=== PATIENT | female | born 1965 | race Caucasian/White ===

== ENCOUNTER 2016-08-21 12:45 | Observation (INO) | payer MEDICAID ==
[2016-08-21] VITALS (10 sets, daily range): BP systolic 112–154; BP diastolic 60–83; PULSE 66–93; RESP 15–18; TEMP 98.1–99.1; O2SAT 95–100
[~2016-08-21] VITALS: Ht 160 cm; Wt 103.0 kg
[~2016-08-21 12:45] MED LIST: AMLO5TAB2 PO; ASPI325T PO; AUGM875T PO; BUTA1CAP PO; DICY10CA12 PO; ESTR0.5T PO; EXCETAB PO; FLUC150T PO; HYDR1OIN25 TOP; KETO2CRE TOPICAL; LACT4500 CHEW; LEVO25TA4 PO; LORA-373 PO; PANT40TA3 PO; SUCR1TAB PO
--- NOTE | 2016-08-21 13:11 | PD ---
HPI Chief Complaint: Chest Pain Time Seen by Provider: 13:10 Travel History International Travel<30 days: No Contact w/Intl Traveler<30days: No Traveled to known affect area: No History of Present Illness HPI 51-year-old female with PMH of HTN, IBS, GERD, anxiety, depression presents to the ED for evaluation of 2 week history of pinching left-sided chest pain, onset at rest. Rated 7/10, radiating down the left arm. Accompanied by palpitations, nausea, shortness of breath. Patient denies diaphoresis. No alleviating or exacerbating factors reported. Episodes last a few minutes and resolve on their own. She is unable to associate these episodes with any particular events. Patient endorses stress test approximately 7 years ago. States she was unable to complete the study. She does not currently have a urgent care physician assistant. Followed by PCP Dr. Naz Holt [facility] Past Medical History Blood Disorders: No Anxiety: Yes Depression: Yes Heart Rhythm Problems: Yes Cancer: No Cardiac Catheterization: No Cardiovascular Problems: Yes (HX SKIPPED BEATS; EVAL WITH NEGATIVE RESULTS) High Cholesterol: Yes Congestive Heart Failure: No Diabetes: No ( HX GESTATIONAL DIABETES; HYPOGLYCEMIA) Diminished Hearing: Yes ([place] (L) ear) Endocrine: No Gastrointestinal Disorders: Yes (LACTOSE INTOLERANCE; COLON POLYPS, COLITIS; IBS; IRREGULARITY, ULCER ) Genitourinary: Yes Hepatitis: No Hiatal Hernia: No Herniated Disk: Yes (CERVICAL SPINE) Immune Disorder: Yes ([place] ) Kidney Stones: Yes Musculoskeletal: Yes (LEFT LEG & KNEE PAIN RADIATING INTO 2 LARGE TOES, LOW BACK PAIN) Neurologic: Yes (MIGRAINE HEADACHES; SEIZURES ) Psychiatric: Yes (ANXIETY & DEPRESSION ) Reproductive: Yes (OVARIAN CYST; UTERINE FIBROIDS; ENDOMETRIOSIS ) Respiratory: No Immunizations Current: No Migraines: Yes (DAILY HEADACHES.) Pneumonia: Yes Thyroid Disease: Yes (HYPOTHRYROID) Ulcer: Yes ?: Not Menopausal: Yes : 4 Para: 2 : 2 Ovarian Cysts: Yes (Fibroid tumor ) Past Surgical History Abdominal Surgery: Yes (LAPPY FOR CYST REMOVAL, COLONOSCOPY W/POLYP REMOVAL) AICD: No Cardiac Surgery: No Coronary Artery Bypass Graft: No Ear Surgery: No Endocrine Surgery: No Eye Surgery: Yes (BILATERAL LASIK) Genitourinary Surgery: No Gynecologic Surgery: Yes (TOTAL HYSTERECTOMY) Hysterectomy: Yes Joint Replacement: No Oral Surgery: Yes Pacemaker: No Thoracic Surgery: No Tonsillectomy: Yes Other Surgery: Yes (SINUS SURGERY) Family History Family Myocardial Infarction: Yes Social History Alcohol Use: No Tobacco Use: No (quit) Substance Use: No Allergies-Medications (Allergen,Severity, Reaction): Coded Allergies: Erythromycin (Verified Allergy, Severe, Rash, 08/21/16) Latex (Verified Allergy, Severe, Itching, 08/21/16) SSRI-Serotonin Reuptake Inhib (Verified Allergy, Severe, Nausea, rash, ) Codeine (Verified Adverse Reaction, Severe, Migraine, 08/21/16) Zofran (Verified Adverse Reaction, Severe, Migraine, 08/21/16) Reported Meds & Prescriptions Reported Meds & Active Scripts Active Fluconazole 150 Mg Tab 150 Mg PO ONCE Augmentin (Amoxicillin-Clavulanate) 875-125 mg Tab 875 Mg PO BID not for use in CrCl <30 ml/min. Estradiol 0.5 Mg Tab 0.5 Mg PO DAILY Fioricet (Djzqemooux-Cqxyhbgrpcfrf-Nvipytqu) 50-300-40 Mg Cap 1-2 Cap PO Q6H PRN Levothyroxine (Levothyroxine Sodium) 25 Mcg Tab 25 Mcg PO DAILY Fioricet (Bkhztapzdq-Eylfruruqgpaq-Prmwefjn) 50-300-40 Mg Cap 1-2 Cap PO Q6H PRN Reported Ketoconazole Topical 2% Cream 1 Applic TOPICAL DIRECTED Hydrocortisone 1% in Abso (Hydrocortisone (Topical)) 1 % Oin 1 Applic TOP Q2HR Excedrin Migraine (Ztoehnq-Hwtqdzhiwweqd-Puxhdxlf) 250-250-65 Mg Tab 2 Tab PO DIRECTED PRN Dicyclomine (Dicyclomine HCl) 10 Mg Cap 10 Mg PO TID PRN Amlodipine (Amlodipine Besylate) 5 Mg Tab 5 Mg PO BID Aspirin 325 Mg Tab 325 Mg PO DAILY Sucralfate 1 Gm Tab 1 Gm PO BID on empty stomach Pantoprazole (Pantoprazole Sodium) 40 Mg Tab 40 Mg PO DAILY Lorazepam 0.5 Mg Tab 0.5 Mg PO HS PRN Review of Systems Except as stated in HPI: all other systems reviewed are Neg Physical Exam Narrative GENERAL: Well-nourished, well-developed obese, anxious white female in no acute distress. SKIN: Warm and dry. HEAD: Normocephalic. EYES: No scleral icterus. No injection or drainage. PERRLA. NECK: Supple, trachea midline. No JVD or lymphadenopathy. No midline tenderness to palpation. CARDIOVASCULAR: Regular rate and rhythm without murmurs, gallops, or rubs. 2+ DP and radial pulses bilaterally. No tenderness to palpation of the precordium. RESPIRATORY: Breath sounds clear and equal bilaterally. No accessory muscle use. GASTROINTESTINAL: Abdomen soft, non-tender, nondistended. Active bowel sounds. MUSCULOSKELETAL: No cyanosis, or edema. NEUROLOGICAL: Awake and alert. Cranial nerves II through XII intact. No pronator drift. Motor and sensory grossly within normal limits. 5/5 muscle strength in all muscle groups. Normal speech. BACK: Nontender without obvious deformity. No CVA tenderness. No midline tenderness to palpation. Data Data Last Documented VS Vital Signs Date Time Temp Pulse Resp B/P Pulse Ox O2 Delivery O2 Flow Rate FiO2 08/21/16 14:39 69 17 139/77 96 Room Air 08/21/16 12:47 99.1 Orders Electrocardiogram (08/21/16:) Basic Metabolic Panel (Bmp) (08/21/16:) Ckmb (Isoenzyme) Profile (08/21/16:23) Complete Blood Count With Diff (08/21/16:) Magnesium (Mg) (08/21/16:) Prothrombin Time / Inr (Pt) (08/21/16:) Act Partial Throm Time (Ptt) (08/21/16:) Troponin I (08/21/16:) Chest, Single Ap (08/21/16:) Ecg Monitoring (08/21/16:) Bilateral Bp Monitoring (08/21/16:23) Iv Access Insert/Monitor (08/21/16:) Oximetry (08/21/16:) Sodium Chloride 0.9% Flush (Ns Flush) (08/21/16 13:30) CKMB (08/21/16:) CKMB% (08/21/16:) Admit Order (Ed Use Only) (08/21/16 15:00) Labs Laboratory Tests Test 08/21/16: White Blood Count 6.0 TH/MM3 Red Blood Count 4.64 MIL/MM3 Hemoglobin 12.2 GM/DL Hematocrit 36.5 % Mean Corpuscular Volume 78.6 FL Mean Corpuscular Hemoglobin 26.2 PG Mean Corpuscular Hemoglobin 33.4 % Concent Red Cell Distribution Width 16.5 % Platelet Count 284 TH/MM3 Mean Platelet Volume 9.7 FL Neutrophils (%) (Auto) 52.4 % Lymphocytes (%) (Auto) 36.7 % Monocytes (%) (Auto) 7.0 % Eosinophils (%) (Auto) 3.2 % Basophils (%) (Auto) 0.7 % Neutrophils # (Auto) 3.1 TH/MM3 Lymphocytes # (Auto) 2.2 TH/MM3 Monocytes # (Auto) 0.4 TH/MM3 Eosinophils # (Auto) 0.2 TH/MM3 Basophils # (Auto) 0.0 TH/MM3 CBC Comment DIFF FINAL Differential Comment Prothrombin Time 10.6 SEC Prothromb Time International 1.0 RATIO Ratio Activated Partial 24.5 SEC Thromboplast Time Sodium Level 139 MEQ/L Potassium Level 3.6 MEQ/L Chloride Level 106 MEQ/L Carbon Dioxide Level 27.4 MEQ/L Anion Gap 6 MEQ/L Blood Urea Nitrogen 17 MG/DL Creatinine 1.04 MG/DL Estimat Glomerular Filtration 56 ML/MIN Rate Random Glucose 89 MG/DL Calcium Level 9.5 MG/DL Magnesium Level 2.4 MG/DL Total Creatine Kinase 120 U/L Creatine Kinase MB LESS THAN 0.5 NG/ML Troponin I LESS THAN 0.02 NG/ML MDM Medical Decision Making Medical Screen Exam Complete: Yes Emergency Medical Condition: Yes Interpretation(s) EKG rate 81, sinus rhythm. [place] interval 145, QRS 114, QTc 426. No ischemic changes. Similar to previous EKG of 06/05/16. Reviewed by Dr. Cervantes. Differential Diagnosis Anxiety versus musculoskeletal pain versus angina versus atypical chest pain versus neuralgia versus less likely ACS versus other Narrative Course 51-year-old female with PMH of HTN, IBS, GERD, anxiety, depression presents to the ED for evaluation of 2 week history of episodic, pinching left-sided chest pain, onset at rest. Rated 7/10, radiating down the left arm. Accompanied by palpitations, nausea, shortness of breath, resolving spontaneously. Patient denies diaphoresis. No alleviating or exacerbating factors reported. She is unable to associate these episodes with any particular events. Patient endorses stress test approximately 7 years ago. States she was unable to complete the study. She does not currently have a urgent care physician assistant. Followed by PCP Dr. Naz Holt. She endorses history of cigarette smoking, family history of SD. Vitals reviewed. Patient is hypertensive in triage but this resolved during the course of her evaluation. Physical exam reveals an anxious, obese white female in no acute distress. Chest CTAB, no N/R/G. No tenderness to palpation of the precordium. Abdomen soft, nontender. No CVA tenderness. No focal neuro deficits. No edema in the lower extremities. Equal pulses in the distal extremities bilaterally. Patient was placed on continuous monitoring. IV was established. CBC: WBC 6.0. Hemoglobin 12.2. INR 1.0. Chemistry: BUN 17, creatinine 1.04. Cardiac enzymes negative CXR: No acute cardiopulmonary process per radiology read. EKG as above. Review of the patient's record reveals stress test 10/15/10. Resulted as nonischemic treadmill study per Dr. Terrazas. Discussed the patient, workup and plan of care with Dr. Cervantes. I discussed the results of the workup and plan of care with the patient, she is agreeable to admission to the chest pain center. This is atypical chest pain in a 51-year-old hypertensive, obese female with history of cigarette smoking and familial SD. Please chest pain center notes for disposition. Diagnosis Primary Impression: Atypical chest pain Peyton Reveles Aug 21, 2016 13:11
[2016-08-21] MEDS ORDERED: SODIUM CHLORIDE 0.9% FLUSH 5 ML FLUSH IVF PRN ×2 (13:30→17:15)
[2016-08-21 13:54] LABS: AUTOMATED NEUTROPHIL # 3.1 TH/MM3 (1.8-7.7); BASOPHIL % 0.7 % (0.0-2.0); EOSINOPHIL # 0.2 TH/MM3 (0-0.4); EOSINOPHIL % 3.2 % (0.0-4.0); HEMATOCRIT 36.5 % (35.0-46.0); HEMO FLAGS DIFF FINAL; LYMPH % 36.7 % (9.0-44.0); LYMPHOCYTE # 2.2 TH/MM3 (1.0-4.8); MEAN CELL VOLUME 78.6 FL (80.0-100.0); MEAN CORPUSCULAR HEMOGLOBIN 26.2 PG (27.0-34.0); MEAN CORPUSCULAR HGB CONC 33.4 % (32.0-36.0); NEUT % 52.4 % (16.0-70.0); PLATELET COUNT 284 TH/MM3 (150-450); RED BLOOD COUNT 4.64 MIL/MM3 (4.00-5.30); RED CELL DISTRIBUTION WIDTH 16.5 % (11.6-17.2)
[2016-08-21 14:01] LABS: APTT (PATIENT) 24.5 SEC (24.3-30.1); PROTHROMBIN TIME - PATIENT 10.6 SEC (9.8-11.6)
[2016-08-21 14:09] LABS: ANION GAP 6 MEQ/L (5-15); BICARBONATE 27.4 MEQ/L (21.0-32.0); BLOOD UREA NITROGEN 17 MG/DL (7-18); CHLORIDE 106 MEQ/L (98-107); GLOMERULAR FILTRATION RATE 56 ML/MIN (>89); MAGNESIUM 2.4 MG/DL (1.5-2.5); POTASSIUM 3.6 MEQ/L (3.5-5.1); SODIUM (NA) 139 MEQ/L (136-145)
[2016-08-21 14:12] LABS: CREATINE KINASE 120 U/L (26-192)
[2016-08-21 14:24] LABS: CKMB LESS THAN 0.5 NG/ML (0.5-3.6)
--- NOTE | 2016-08-21 14:26 | RADRPT ---
EXAM DATE/TIME: 08/21/2016 13:29 [facility] COMPARISON: CHEST SINGLE AP, May 24, 2016, 13:16. INDICATIONS : Pain in left chest and left arm for 5 days, pain has become more severe today, former smoker, no ches t surgery MEDICAL HISTORY : Hypertension. SURGICAL HISTORY : None. ENCOUNTER: Initial ACUITY: 4 - 6 days PAIN SCORE: 9/10 LOCATION: Left chest FINDINGS: A single view of the chest demonstrates the lungs to be symmetrically aerated without evidence of mas s, infiltrate or effusion. The cardiomediastinal contours are unremarkable. Osseous structures are intact. CONCLUSION: No acute cardiopulmonary process. Jorge Gómez MD on August 21, 2016 at 14:22 Board Certified Radiologist. This report was verified electronically.
--- NOTE | 2016-08-21 17:08 | HHI.HP ---
[facility] Primary Care Physician Naz Holt MD Chief Complaint Chest and arm pain History of Present Illness This is a 51-year-old female that presents to the ED via the [facility] with a complaint of arm and chest pain. She has had a constant left arm discomfort for 4 days. The intensity waxes and wanes. She saw nothing to worsen or improve the symptoms. She also has had a pinching sensation to the center of her chest and minimally filled last 4 days. We'll last about a minute at a time. She believes her blood pressure is high. She states her blood pressure should be about 109 and a bit tired that she feels sick. She states she has been dizzy the last 3 or 4 days. She denies heart disease. She had a stress test at this facility in 2010 is nonischemic. Denies recent illness. Of note the patient had been doing some weed whacking a couple days prior to having the left arm discomfort. Review of Systems General: Patient denies fevers, chills recent, and recent travel HEENT: Patient denies headache, sore throat, difficulty swallowing. Cardiovascular: Has the chest discomfort as mentioned above. Denies sensation of heart beating rapidly or irregularly. No syncope. Respiratory: Denies shortness of breath or inspirational chest discomfort. Denies coughing wheezing or hemoptysis. GI: Patient denies nausea, vomiting, diarrhea, abdominal pain, bloody stools. Musculoskeletal: Patient complains of left arm pain. Denies calf pain or edema. Neurovascular: Patient denies numbness, tingling, weakness in extremities. Denies headache. Endocrine: Denies polyuria and polydipsia. Hematologic: Denies easy bruising. Skin: Denies rash or itching. Past Family Social History Allergies: Coded Allergies: Erythromycin (Verified Allergy, Severe, Rash, 08/21/16) Latex (Verified Allergy, Severe, Itching, 08/21/16) SSRI-Serotonin Reuptake Inhib (Verified Allergy, Severe, Nausea, rash, ) Codeine (Verified Adverse Reaction, Severe, Migraine, 08/21/16) Zofran (Verified Adverse Reaction, Severe, Migraine, 08/21/16) Past Medical History Hypertension, hypothyroidism, migraines, depression. Denies diabetes and hyperlipidemia as well as denying coronary disease. Past Surgical History Noncontributory. Reported Medications Reported Meds & Active Scripts Active Fluconazole 150 Mg Tab 150 Mg PO ONCE Augmentin (Amoxicillin-Clavulanate) 875-125 mg Tab 875 Mg PO BID not for use in CrCl <30 ml/min. Estradiol 0.5 Mg Tab 0.5 Mg PO DAILY Fioricet (Jvpifucxpe-Gekdrvupynggq-Jltvxozk) 50-300-40 Mg Cap 1-2 Cap PO Q6H PRN Levothyroxine (Levothyroxine Sodium) 25 Mcg Tab 25 Mcg PO DAILY Fioricet (Ncikwtzoqc-Siihowefssbqw-Dvotiujh) 50-300-40 Mg Cap 1-2 Cap PO Q6H PRN Reported Ketoconazole Topical 2% Cream 1 Applic TOPICAL DIRECTED Hydrocortisone 1% in Abso (Hydrocortisone (Topical)) 1 % Oin 1 Applic TOP Q2HR Excedrin Migraine (Scgdmaq-Rwclhouraktuv-Mhmmdeag) 250-250-65 Mg Tab 2 Tab PO DIRECTED PRN Dicyclomine (Dicyclomine HCl) 10 Mg Cap 10 Mg PO TID PRN Amlodipine (Amlodipine Besylate) 5 Mg Tab 5 Mg PO BID Aspirin 325 Mg Tab 325 Mg PO DAILY Sucralfate 1 Gm Tab 1 Gm PO BID on empty stomach Pantoprazole (Pantoprazole Sodium) 40 Mg Tab 40 Mg PO DAILY Lorazepam 0.5 Mg Tab 0.5 Mg PO HS PRN Active Ordered Medications Current Medications Medications (Trade) Dose Ordered Sig/Ari Route Start Time Stop Time Status Last Admin (NS Flush) 2 ml UNSCH PRN IVF 08/21/16 13:30 Family History Family history is unknown. Social History Patient quit smoking 5 years ago. Prior to that she smoked on average less than a pack a day for about 10 years. She denies illicit drugs. Denies alcohol use. Physical Exam Vital Signs Vital Signs Date Time Temp Pulse Resp B/P Pulse Ox O2 Delivery O2 Flow Rate FiO2 08/21/16 14:39 69 17 139/77 96 Room Air 08/21/16 13:25 100 Room Air 08/21/16 12:59 93 15 154/83 100 Room Air 08/21/16 12:56 17 08/21/16 12:47 99.1 92 16 152/78 98 Room Air Physical Exam GENERAL: This is a well-nourished, well-developed patient, in no apparent distress. Patient speaks in clear complete sentences. Patient is pleasant. Patient's daughter is also at the bedside. HEENT: Head is atraumatic and normocephalic. Neck is supple without lymphadenopathy and trachea is midline. No JVD or carotid bruits. CARDIOVASCULAR: Regular rate and rhythm without murmurs, gallops, or rubs. RESPIRATORY: Clear to auscultation. Breath sounds equal bilaterally. No wheezes , rales, or rhonchi. Chest wall is nontender. No use of accessory muscles. GASTROINTESTINAL: Abdomen is nontender, nondistended. Abdomen soft. No obvious pulsatile mass or bruit. No CVA tenderness. Strong femoral pulses bilaterally. Normal bowel sounds in all quadrants. MUSCULOSKELETAL: Patient is moving upper and lower extremities freely. There is tenderness on palpating left arm. Right arm is nontender. No calf tenderness or edema, no Homans sign. Strong pulses in upper and lower extremities. NEUROLOGICAL: Patient is alert and oriented. Cranial nerves 2-12 are grossly intact. No focal deficits and speech is clear. SKIN: No rash and turgor is normal. Laboratory Laboratory Tests Test 08/21/16 13:25 White Blood Count 6.0 Red Blood Count 4.64 Hemoglobin 12.2 Hematocrit 36.5 Mean Corpuscular Volume 78.6 Mean Corpuscular Hemoglobin 26.2 Mean Corpuscular Hemoglobin 33.4 Concent Red Cell Distribution Width 16.5 Platelet Count 284 Mean Platelet Volume 9.7 Neutrophils (%) (Auto) 52.4 Lymphocytes (%) (Auto) 36.7 Monocytes (%) (Auto) 7.0 Eosinophils (%) (Auto) 3.2 Basophils (%) (Auto) 0.7 Neutrophils # (Auto) 3.1 Lymphocytes # (Auto) 2.2 Monocytes # (Auto) 0.4 Eosinophils # (Auto) 0.2 Basophils # (Auto) 0.0 CBC Comment DIFF FINAL Differential Comment Prothrombin Time 10.6 Prothromb Time International 1.0 Ratio Activated Partial 24.5 Thromboplast Time Sodium Level 139 Potassium Level 3.6 Chloride Level 106 Carbon Dioxide Level 27.4 Anion Gap 6 Blood Urea Nitrogen 17 Creatinine 1.04 Estimat Glomerular Filtration 56 Rate Random Glucose 89 Calcium Level 9.5 Magnesium Level 2.4 Total Creatine Kinase 120 Creatine Kinase MB LESS THAN 0.5 Troponin I LESS THAN 0.02 Result Diagram: 08/21/16 1325 2/13/17 1325 Imaging Last Impressions Chest X-Ray 08/21/16 1323 Signed Impressions: Service Date/Time: Sunday, August 21, 2016 13:29 - CONCLUSION: No acute cardiopulmonary process. Jorge Gómez MD Course Initial EKG has sinus rhythm with nonspecific inferior ST changes. Assessment and Plan Assessment and Plan * Chest pain: Patient will continue to have serial cardiac enzymes and EKGs for ruling out purposes. She will be seen by Dr. Terrazas and the chest pain center in the morning. She will have a stress test if she does rule out. She' ll be discharged home with instructions to follow-up with her primary care physician if her stress test were to be nonischemic. * Hypertension: Continue her medications. * Hypothyroidism: Continue current medications. Will get a TSH level. Patient is stable at this time. She is agreeable to this plan. Matias Luz Aug 21, 2016 17:08
[2016-08-21] MEDS ORDERED: ACETAMINOPHEN 500 MG CPLT PO PRN (17:15)
[2016-08-21] MEDS ORDERED: TEMAZEPAM 15 MG CAP PO PRN (17:15)
[2016-08-21] MEDS ORDERED: ALPRAZolam 0.25 MG TAB PO PRN (17:15)
[2016-08-21 18:44] LABS: CREATINE KINASE 113 U/L (26-192)
[2016-08-21 18:56] LABS: CKMB LESS THAN 0.5 NG/ML (0.5-3.6)
[2016-08-21] MEDS: amLODIPine BESYLATE 5 MG TAB PO SCH (21:00)
[2016-08-21] MEDS ORDERED: IBUPROFEN 800 MG TAB PO PRN (22:30)
[2016-08-21 23:26] LABS: CREATINE KINASE 95 U/L (26-192)
[2016-08-21] MEDS: SODIUM CHLORIDE 0.9% FLUSH 5 ML FLUSH IVF SCH (23:56)
[2016-08-22] MEDS ORDERED: LEVOTHYROXINE SODIUM 25 MCG TAB PO SCH (06:00)
[2016-08-22 06:05] VITALS: BP 99/58; PULSE 61; RESP 18; TEMP 98.2; O2SAT 95
[2016-08-22] MEDS ORDERED: SODIUM CHLORID 0.9% 500 ML INJ 500 ML IV ONE (07:45)
[2016-08-22 08:01] VITALS: BP 117/69; PULSE 75; RESP 20; TEMP 97.9; O2SAT 94
[2016-08-22] MEDS: amLODIPine BESYLATE 5 MG TAB PO SCH (08:30)
[2016-08-22] MEDS: SODIUM CHLORIDE 0.9% FLUSH 5 ML FLUSH IVF SCH (08:30)
[2016-08-22] MEDS ORDERED: IBUPROFEN 800 MG TAB PO ONE (08:30)
[2016-08-22] MEDS ORDERED: HYDROCORTISONE 1% CREAM 30 GM TOPICAL SCH (09:00)
[2016-08-22] MEDS ORDERED: ASPIRIN 325 MG TAB PO SCH (09:00)
[2016-08-22] MEDS ORDERED: PANTOPRAZOLE SOD 40 MG DELAYED RELEASE TAB PO SCH (09:00)
--- NOTE | 2016-08-22 10:11 | EKG ---
Date Performed: 08/21/2016 Time Performed: 20:46:41 PTAGE: 51 years EKG: Sinus rhythm MODERATE INTRAVENTRICULAR CONDUCTION DELAY NONSPECIFIC ST & T-WAVE ABNORMALITY BORDERLINE ECG Since PREVIOUS TRACING , no significant change noted PREVIOUS TRACIN08/21/2016 17.35 DOCTOR: Stacy Terrazas Interpretating Date/Time 08/22/2016 10:10:49
--- NOTE | 2016-08-22 10:12 | EKG ---
Date Performed: 08/21/2016 Time Performed: 17:35:52 PTAGE: 51 years EKG: Sinus rhythm MODERATE INTRAVENTRICULAR CONDUCTION DELAY MINIMAL ST DEPRESSION BORDERLINE ECG Since PREVIOUS TRACING , no significant change noted PREVIOUS TRACIN08/21/2016 13.02 DOCTOR: Stacy Terrazas Interpretating Date/Time 08/22/2016 10:11:58
[2016-08-22] MEDS ORDERED: AMINOPHYLLINE INJ 250 MG/10 ML VIAL ONE (11:11)
[2016-08-22] MEDS ORDERED: REGADENOSON INJ 0.4 MG/5 ML SYR ONE (11:12)
--- NOTE | 2016-08-22 11:50 | EKG ---
Date Performed: 08/21/2016 Time Performed: 13:02:26 PTAGE: 51 years EKG: Sinus rhythm INTRAVENTRICULAR CONDUCTION DELAY Non-specific ST changes ABNORMAL ECG Since PREVIOUS TRACING , no significant change noted PREVIOUS TRACIN06/05/2016 11.51 DOCTOR: Stacy Terrazas Interpretating Date/Time 08/22/2016 11:49:18
--- NOTE | 2016-08-22 11:57 | RADRPT ---
EXAM DATE/TIME: 08/22/2016 10:02 [facility] COMPARISON: CHEST SINGLE AP, August 21, 2016, 13:29. INDICATIONS : Left chest pain radiating to left arm with nausea, palpitations and dyspnea for 5 days. Angina. DOSE: 35 mCi Tc99m Myoview at stress. 11 mCi Tc99m Myoview at rest. 0.4 mg Lexiscan STRESS SYMPTOMS: Nausea, headache and chest pain. MEDICATIONS: 1.) 100 mg Aminophylline IV EJECTION FRACTION: % MEDICAL HISTORY : Hypercholesterolemia. Diabetes mellitus type 2. Gastroesophageal reflux disease. Hypertension. SURGICAL HISTORY : Tonsillectomy. Hysterectomy. ENCOUNTER: Initial ACUITY: 4 - 6 days PAIN SCALE: 7/10 LOCATION: Left chest TECHNIQUE: The patient underwent pharmacologic stress with infusion of prescribed dose. Continuous ECG tracing was monitored during stress. Gated SPECT imaging was performed after stress and conventional SPECT i maging was performed at rest. The examination was performed on a SPECT/CT scanner, both attenuation and non-corrected datasets were reviewed. FINDINGS: DISTRIBUTION: The maximum perfused segment at stress is in the lateral wall. PERFUSION STUDY: The pattern of perfusion at stress is within normal limits. GATED STUDY: There is intact wall motion and thickening without hypokinetic or dyskinetic segments. CONCLUSION: 1. No fixed or reversible wall defects to suggest ischemia or infarction. 2. Normal wall motion and calculated ejection fraction. RISK CATEGORY: Low (<1% Annual Mortality Rate) Adrian Leone MD on August 22, 2016 at 11:55 Board Certified Radiologist. This report was verified electronically.
--- NOTE | 2016-08-22 11:58 | TR ---
Date Performed: 08/22/2016 Time Performed: 10:39:45 DOCTOR: Stacy Terrazas DRUG LIST: CLINICAL HISTORY: REASON FOR TEST: CHEST PAIN REASON FOR ENDING: OBSERVATION: CONCLUSION: Lexiscan stress test was performed under standard four minute protocol. Radionuclid e was injected one minute prior to ending the test. No electrocardiographic abormalities were present to suggest ischemia. Nuclear imaging and interpretation are pending. COMMENTS:
--- NOTE | 2016-08-22 12:10 | HHI.DCPOC ---
Discharge Care Plan Diagnosis: (1) Atypical chest pain (2) Cephalgia (3) Hypertension Goals to Promote Your Health * To prevent worsening of your condition and complications * To maintain your health at the optimal level Directions to Meet Your Goals Take your medications as prescribed Follow your dietary instruction Follow activity as directed Keep your appointments as scheduled Take your immunizations and boosters as scheduled If your symptoms worsen call your PCP, if no PCP go to Urgent Care Center or Emergency Room Smoking is Dangerous to Your Health. Avoid second hand smoke Call the 24-hour hour crisis hotline for domestic abuse at Matias Luz Aug 22, 2016 12:10
[2016-08-30] MEDS ORDERED: BUPR150T3 PO (15:02)
[2016-08-30] MEDS ORDERED: BUTA1CAP PO (15:03)
[2016-09-12] MEDS ORDERED: BUPR150T3 PO (20:19)
[2016-10-12] MEDS ORDERED: BUTA1CAP PO (11:48)
[2016-10-12] MEDS ORDERED: AMLO5TAB2 PO (11:53)
[2016-10-12] MEDS ORDERED: AMLO2.5T PO (11:53)
[2016-10-27] MEDS ORDERED: PRED5PAK PO (15:38)
[2016-10-27] MEDS ORDERED: CAPS0.073 TOPICAL (16:12)
[2016-11-05] MEDS ORDERED: LEVO25TA4 PO (12:33)
[2016-11-23] MEDS ORDERED: AZIT250T3 PO (16:36)
[2016-11-23] MEDS ORDERED: FLUC150T PO (16:40)
[2016-11-23] MEDS ORDERED: HYDR2.5O TOPICAL (16:40)
[2016-11-23] MEDS ORDERED: TRIA0.022 TOPICAL (16:40)
[2016-11-30] MEDS ORDERED: AMLO2.5T PO (16:15)
[2016-11-30] MEDS ORDERED: AMLO5TAB2 PO (16:15)
[2016-12-15] MEDS ORDERED: BUTA1CAP PO (14:39)
[2016-12-15] MEDS ORDERED: AMLO2.5T PO (14:39)
[2016-12-15] MEDS ORDERED: AMLO5TAB2 PO (14:39)
[2016-12-28] MEDS ORDERED: LEVO25TA4 PO (09:15)
[2016-12-28] MEDS ORDERED: PANT40TA3 PO (09:43)
[2016-12-28] MEDS ORDERED: LACTCHW3 CHEW (11:56)
== END 2016-08-22 13:31 | disposition home or self-care (01) ==
LOC: NEPC 12:45 → NEDA 15:02 → NEPHCDU 18:50
PROVIDERS: ADMIT Internal Medicine Cardiovascular Disease; ATTEND Internal Medicine Cardiovascular Disease
DX: R07.89 Other chest pain (principal); R51 Headache; I10 Essential (primary) hypertension; R94.31 Abnormal electrocardiogram [ECG] [EKG]; E03.9 Hypothyroidism, unspecified; K21.9 Gastro-esophageal reflux disease without esophagitis; E73.9 Lactose intolerance, unspecified; K58.9 Irritable bowel syndrome, unspecified; E78.00 Pure hypercholesterolemia, unspecified; Z86.010 Personal history of colon polyps; E66.9 Obesity, unspecified; Z68.41 Body mass index [BMI] 40.0-44.9, adult; Z86.32 Personal history of gestational diabetes; Z87.442 Personal history of urinary calculi; Z87.891 Personal history of nicotine dependence; Z82.49 Family history of ischemic heart disease and other diseases of the circulatory system
CPT/HCPCS: 71010; 78452; 80048; 82550; 82552; 83735; 84484; 85025; 85610; 85730; 93005; 93017; 99285; A9502; G0378; J0280; J2785; J7040

== ENCOUNTER 2016-10-23 12:06 | Emergency (ER) | payer OTHER, MEDICAID ==
[~2016-10-23] VITALS: Ht 172.7 cm; Wt 100.0 kg
[~2016-10-23 12:06] MED LIST changes: +AMLO2.5T PO; -ASPI325T PO; -AUGM875T PO; +BUPR150T3 PO; -ESTR0.5T PO; -FLUC150T PO; -HYDR1OIN25 TOP; -KETO2CRE TOPICAL; -LACT4500 CHEW
[2016-10-23 12:18] VITALS: BP 154/74; PULSE 92; RESP 20; TEMP 97.6; O2SAT 98
[2016-10-23] MEDS ORDERED: KETOROLAC TROMETHAMINE 60 MG/2 ML (IM) VIAL IM ONE (12:30)
[2016-10-23] MEDS ORDERED: ORPHENADRINE INJ 60 MG/2 ML AMP IM ONE (12:30)
[2016-10-23] MEDS ORDERED: IBUP800T23 PO (12:57)
[2016-10-23] MEDS ORDERED: ALLERGY PILL (12:57)
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
[2016-10-23 13:05] VITALS: BP 150/70; PULSE 78; RESP 20; O2SAT 99
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
[2016-10-23 14:10] VITALS: BP 141/72; PULSE 94; RESP 20; O2SAT 95
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
[2016-10-23] MEDS ORDERED: CYCL1TAB29 PO (15:08)
[2016-10-23] MEDS ORDERED: IBUP-232 PO (15:08)
[2016-10-23 16:05] VITALS: BP 141/84
[2016-10-27] MEDS ORDERED: PRED5PAK PO (15:38)
[2016-10-27] MEDS ORDERED: CAPS0.073 TOPICAL (16:12)
[2016-11-05] MEDS ORDERED: LEVO25TA4 PO (12:33)
[2016-11-23] MEDS ORDERED: AZIT250T3 PO (16:36)
[2016-11-23] MEDS ORDERED: HYDR2.5O TOPICAL (16:40)
[2016-11-23] MEDS ORDERED: TRIA0.022 TOPICAL (16:40)
[2016-11-23] MEDS ORDERED: FLUC150T PO (16:40)
[2016-11-30] MEDS ORDERED: AMLO2.5T PO (16:15)
[2016-11-30] MEDS ORDERED: AMLO5TAB2 PO (16:15)
[2016-12-15] MEDS ORDERED: AMLO2.5T PO (14:39)
[2016-12-15] MEDS ORDERED: BUTA1CAP PO (14:39)
[2016-12-15] MEDS ORDERED: AMLO5TAB2 PO (14:39)
[2016-12-28] MEDS ORDERED: LEVO25TA4 PO (09:15)
[2016-12-28] MEDS ORDERED: PANT40TA3 PO (09:43)
[2016-12-28] MEDS ORDERED: LACTCHW3 CHEW (11:56)
== END 2016-10-23 16:09 | disposition home or self-care (01) ==
LOC: NEPD 12:06
DX: S16.1XXA Strain of muscle, fascia and tendon at neck level, initial encounter (principal); R51 Headache; E78.00 Pure hypercholesterolemia, unspecified; I10 Essential (primary) hypertension; R11.0 Nausea; V49.49XA Driver injured in collision with other motor vehicles in traffic accident, initial encounter; Y92.410 Unspecified street and highway as the place of occurrence of the external cause
CPT/HCPCS: 70450; 72125; 96372; 99284; J1885; J2360

== ENCOUNTER 2017-08-13 19:23 | Emergency (ER) | payer MEDICAID ==
[~2017-08-13] VITALS: Ht 162.6 cm; Wt 89.9 kg
[~2017-08-13 19:23] MED LIST changes: +AMIT10TA6 PO; -AMLO5TAB2 PO; +BROMSYP PO; +CETI-1 PO; +CLOT1CRE4 VAGINAL; +DIFL150T PO; +ESTR0.5T PO; +ESTR42.5V VAGINAL; -EXCETAB PO; +EXCETAB31 PO; +HYDR2.5O TOPICAL; +IBUP-232 PO; +IBUP1TAB7 PO; +KETO2CRE TOPICAL; +LACTCHW3 CHEW; -LEVO25TA4 PO; +LIDO2GEL11 TOPICAL; -LORA-373 PO; +LORA0.5T PO; +OXYC1TAB36 PO; +TRIA0.022 TOPICAL; +VAGI10TA VAGINAL; +VOLT1GEL16
[2017-08-13 19:32] VITALS: BP 125/70; PULSE 79; RESP 12; TEMP 98.5; O2SAT 99
== END 2017-08-13 20:31 | disposition left against medical advice (07) ==
LOC: PHED 19:23
DX: Z53.21 Procedure and treatment not carried out due to patient leaving prior to being seen by health care provider (principal)
CPT/HCPCS: 99281